=== PATIENT | female | born 1995 | race African-American/Black ===

== ENCOUNTER 2016-06-09 22:00 | Observation (INO) | payer OTHER ==
[2016-06-09 22:18] VITALS: BMI 16.7
[2016-06-09] MEDS ORDERED: Vaccine Screening Complete SCH (23:00)
[2016-06-09] MEDS ORDERED: SODIUM CHLORIDE 0.9% 3 ML FLUSH FLUSH PRN (23:17)
[2016-06-09] MEDS ORDERED: NS 1,000 ML IV ONE (23:18)
[2016-06-09] MEDS ORDERED: NS 1,000 ML IV SCH (23:18)
[2016-06-09] MEDS ORDERED: Betamethasone 6 mg/mL SUSP for INJ 5 ml MDV IM ONE (23:23)
[2016-06-10] MEDS ORDERED: ZOLPIDEM TARTRATE 5 MG TAB PO PRN (01:19)
[2016-06-10] MEDS ORDERED: SODIUM CHLORIDE 0.9% 3 ML FLUSH FLUSH SCH (06:00)
--- NOTE | 2016-06-10 10:18 | HISTPHYS ---
- HISTORY OF PRESENT ILLNESS Age: 20 Estimated Due Date: 07/24/16 Gestational Age: 32 : 1 Para: 0 Patient Presents to:: Labor & Delivery Presents for:: Contractions (Presented overnigth with painful contractions and vaginal spotting. ) Current : No Complications - REVIEW OF SYSTEMS ROS Negative Except As Marked: Yes ROS Negative except as marked Reports/Denies: Reports: Contractions (Mild and irregular currently. Improved over last night), Movement (Normal ). Denies: Complaints, Vaginal Bleeding, Leaking Fluid Pain: Reports: None - ALLERGIES Allergies Allergy/AdvReac Type Severity Reaction Status Date / Time No Known Allergies Allergy Verified 06/09/16 22:13 - CURRENT MEDICATIONS Home Medication List No Home Medications 06/09/16 [History] - PAST MEDICAL HISTORY Reports: No Significant History - PAST SURGICAL HISTORY Reports: None - FAMILY HISTORY Family History: Noncontributory - SOCIAL HISTORY Travel Outside of [place] in the Last 3 Months?: No Smoking Status: Former smoker Social History: Denies: Alcohol Use Marital Status: Single (Never ) - GENITOURINARY HISTORY Gynecologic History: Reports: None HX : 1 Para: 0 Live Deliveries (# of pregnancies resulting in a live ): 0 Hx Multiple Births: No - PHYSICAL EXAM Vital Signs:: Temperature: 98.2 F (06/10/16 10:07) HR: 71 (06/10/16 10:07) RR: 18 (06/10/16 10:07) BP: 112/67 (06/10/16 10:07) Pulse Ox: () GENERAL: Alert, Oriented, No Acute Distress ABDOMEN: Gravid, Non-Distended, Non-Tender, Soft Fundal Height (cm): 33 GENITOURINARY: Normal. negative: Lesions, Mass, Rash, Swelling, Discharge MUSCULOSKELETAL: Normal, Strength/Tone Normal for Age. negative: Atrophy EXTERMITIES: negative: Pain/Tenderness Dilation (cm): 3 Effacement (%): 70 Station: -3 Heart Rate: 140 Reactive, Moderate Variability. negative: Decelerations Contractions: Irregular Membranes: Intact - ASSESSMENT (ACTIVE PROBLEMS) (1) labor in third trimester Acute O60.03 - LABOR WITHOUT DELIVERY, THIRD TRIMESTER - PLAN Admit, Betamethasone (Pt counseled on the POC. ), IV Hydration
[2016-06-10] MEDS ORDERED: Betamethasone 6 mg/mL SUSP for INJ 5 ml MDV IM ONE (23:19)
[2016-06-11 05:56] VITALS: BP 101/57; PULSE 71; TEMP 98.2
--- NOTE | 2016-06-11 07:57 | OBGYNPROG ---
- Subjective Hospital Day #: 2 Reports: Contractions (rare), Movement. Denies: Complaints, Vaginal Bleeding, Leaking Fluid Pain: Reports: None - Objective Vital Signs: Last Vital Signs Temp 98.2 F 06/11/16 05:55 Pulse 71 06/11/16 05:55 Resp 16 06/11/16 05:55 BP 101/57 L 06/11/16 05:55 Pulse Ox GENERAL: Alert, Oriented, No Acute Distress ABDOMEN: Gravid, Non-Distended, Non-Tender, Soft Monitor Mode: External(US) Heart Rate: Reactive Contraction Pattern: Absent Dilation (cm): 3 Effacement (%): 70 Station: -2 Membranes: Intact OBGYN Progress Note - ASSESSMENT (1) 33 weeks gestation of Status: Acute Code(s): Z3A.33 - 33 WEEKS GESTATION OF (2) labor in third trimester Status: Acute Code(s): O60.03 - LABOR WITHOUT DELIVERY, THIRD TRIMESTER - PLAN Continue Present Management, Discharge (on bedrest)
--- NOTE | 2016-06-11 07:59 | PCM.DCS92 ---
- Primary/Secondary Discharge Diagnoses (1) 33 weeks gestation of Acute Z3A.33 - 33 WEEKS GESTATION OF (2) labor in third trimester Acute O60.03 - LABOR WITHOUT DELIVERY, THIRD TRIMESTER - HOSPITAL COURSE Patient received betamethasone times two and IV fluids and contractions stopped and no cervical change made. - DISCHARGE INSTRUCTIONS Discharge Disposition: Home Discharge Condition: Stable Cognitive Discharge Status: Unimpaired Fuctional Discharge Status: Independent Patient Leaving with Prescriptions?: None Home Medications/ New Prescriptions: Continue No Home Medications 0 NA DIR #0 info Referrals: Inessa Mcintyre DO [Staff Physician] - Keep Scheduled Appt (at [facility]) - Diet Diet at Discharge: Regular - Activity Activity: Bedrest, Pelvic Rest - Instructions Call Physician for: Regular Contractions, Decreased Movement, Rupture of Membranes, Vaginal Bleeding, Worsening Symptoms - Incision Incision, Lacerations, or Tears: No - DC Summary Notes Discharge Medications: *See "Discharge Medication List" for a complete list of Home Medications and Discharge Medications.* Obstetric Hospital Course - Admitting Diagnosis Reason for Visit: Vaginal Bleeding Admission Date: 06/09/16 Admission time: 22:15 Gestational Age: 33 - Infant Data Feeding Plans for Infant: Breast, Bottle
[2016-06-11] MEDS ORDERED: TETANUS-DIPTHERIA-ACEL PERTUSS 0.5 ML SYR IM ONE (08:00)
== END 2016-06-11 09:58 | disposition home or self-care (01) ==
LOC: LD 22:00 → MASU 06-10 09:39 → UNDODISOB 06-11 09:58
PROVIDERS: ADMIT Obstetrics & Gynecology; ATTEND Obstetrics & Gynecology
DX: O60.03 Preterm labor without delivery, third trimester (principal); Z3A.33 33 weeks gestation of pregnancy
CPT/HCPCS: 81002; 96360; 96361; 96372; G0378; J0702